=== PATIENT | female | born 2005 | race Caucasian/White ===

== ENCOUNTER → 2025-03-02 12:14 | Outpatient (BNVA) | payer OTHER, BC, SELFPAY | PROVIDERS: Visit Provider Surgery | DX: R10.9 Unspecified abdominal pain (principal); G89.29 Other chronic pain | CPT/HCPCS: 36415; 80048; 80076; 85025 ==

== ENCOUNTER 2025-03-29 09:05 | Outpatient (CLI) | payer BC, SELFPAY ==
--- NOTE | 2025-03-29 09:45 | MR_ITS ---
WS: [id number] MRCP (MAGNETIC RESONANCE CHOLANGIOPANCREATOGRAPHY) HISTORY: Choledocholithiasis vs choledochal cyt COMPARISON: Gallbladder ultrasound 03/04/2025 TECHNIQUE: Multiple sequences are performed to evaluate the intra and extrahepatic ducts. Numerous stones filling the gallbladder as also noted on a prior ultrasound. No pericholecystic fluid. By MRI no gallbladder wall thickening. There is no intrahepatic duct dilatation. Fusiform dilatation of the extrahepatic common bile duct. There are no stones identified within the common bile duct. Common bile duct diameter measures up to 1.3 cm. Fusiform dilatation extends over a length of 2.6 cm. Beginning near the pancreatic head the common bile duct returns to normal 0.4 cm diameter. No intraluminal filling defect. The pancreatic duct is not dilated. There is a additional cystic dilatation of the central RIGHT and LEFT intrahepatic ducts. This is only evident on the 3D imaging. No hepatic cysts. No pancreatitis. No ascites. Lung bases are clear. No pleural effusions. No ascites. Visualized kidneys and adrenal glands are negative. MR/MR MRCP [id number] IMPRESSION: 1. Cholelithiasis without evidence for acute cholecystitis. Numerous gallstone s are identified. 2. Fusiform dilatation of the extrahepatic common bile duct with a maximum usha meter of 1.3 cm. There is additional dilatation extending into the central RIGH T and LEFT intrahepatic ducts. Fusiform dilatation of the proximal intrahepatic ducts is only seen on the 3D imaging. 3. Focal changing caliber in the distal extrahepatic common bile duct. Common bile duct returns to normal diameter of 0.4 cm near the pancreatic head. No hig h-grade stricture is evident.
== END 2025-03-29 09:06 | disposition home or self-care (01) ==
LOC: RAD 09:07
PROVIDERS: PCP Physician Assistant; Visit Provider Surgery
DX: K80.50 Calculus of bile duct without cholangitis or cholecystitis without obstruction (principal)
CPT/HCPCS: 74181